=== PATIENT | male | born 1965 | race Caucasian/White ===

== ENCOUNTER 2016-09-23 18:38 | Emergency (ER) | payer MEDICAID ==
[2016-09-23] MEDS ORDERED: Albuterol 0.083% Inhal Sol (2.5 mg/3 mL) UD INH STA (19:06)
--- NOTE | 2016-09-23 19:23 | C.PDOC ---
History Of Present Illness 51 year old male presents to the ED via EMS with complaints of asthma exacerbation since last night. Patient states he used his Albuterol pump with no relief and called the ambulance and was given Solu-Medrol en route with improvement upon arrival. Patient reports he has only been on Albuterol recently. Time Seen by Provider: 09/23/16 18:53 Chief Complaint (Nursing): Respiratory Distress History Per: Patient History/Exam Limitations: no limitations Onset/Duration Of Symptoms: Days Current Symptoms Are (Timing): Still Present Initiating Event: Upper Respiratory Illness Current Respiratory Medications: Albuterol Severity: Mild Associated Symptoms: denies: Fever, Chills, Sweating, Chest Pain, Productive Cough Past Medical History Reviewed: Historical Data, Nursing Documentation, Vital Signs Vital Signs: Last Vital Signs Temp 98.7 F 09/23/16 20:56 Pulse 97 H 09/23/16 20:56 Resp 20 09/23/16 20:56 BP 122/77 09/23/16 20:56 Pulse Ox 98 09/23/16 21:20 - Medical History PMH: Asthma, HTN Family History: States: Unknown Family Hx - Social History Hx Tobacco Use: No Hx Alcohol Use: No Hx Substance Use: No Review Of Systems Except As Marked, All Systems Reviewed And Found Negative. Constitutional: Negative for: Fever, Chills Cardiovascular: Negative for: Chest Pain, Palpitations Respiratory: Positive for: Shortness of Breath. Negative for: Cough Neurological: Negative for: Weakness, Numbness Physical Exam - Physical Exam Appears: Non-toxic, No Acute Distress Skin: Normal Color, Warm, Dry Head: Atraumatic, Normacephalic Oral Mucosa: Moist Neck: Supple Chest: Symmetrical, No Deformity Cardiovascular: Rhythm Regular, No Murmur Respiratory: No Accessory Muscle Use, No Rales, No Rhonchi, Wheezing (+Mild diffuse expiratory wheezing) Gastrointestinal/Abdominal: Soft, No Tenderness, No Distention, No Guarding, No Rebound Extremity: Normal ROM Neurological/Psych: Oriented x3, Normal Speech, Normal Cognition ED Course And Treatment O2 Sat by Pulse Oximetry: 98 (Room air) Pulse Ox Interpretation: Normal Progress Note: Patient treated with nebs. Medical Decision Making Medical Decision Making: Post treatments markedly improved. Ambulated around the ED without diffuctly or SOB I discussed asthma tx with pt ie LAB Inhaled steroids alb and spacers. Pt understands no extra advair' alb when needed early clinic f/u Disposition Counseled Patient/Family Regarding: Need For Followup - Disposition Referrals: [facility] [Outside] Disposition: HOME/ ROUTINE Disposition Time: 21:08 Condition: GOOD Additional Instructions: Follow up in clinic, call to change apt Prescriptions: Fluticasone/Salmeterol 500/50 [Advair Diskus] 1 puff IH Q12 #1 puff Prednisone 1 tab PO DAILY #4 tablet Inhaler, Assist Devices [Space Chamber Plus] 1 each MC PRN #1 spacer Albuterol HFA [Ventolin HFA 90 mcg/actuation (8 g)] 1 puff IH QID PRN #1 puff PRN Reason: Cough Instructions: Asthma (ED) - Clinical Impression Clinical Impression: Asthma - Scribe Statement The provider has reviewed the documentation as recorded by the Scribe Kvng Alvarenga. Provider Attestation: All medical record entries made by the Scribe were at my direction and personally dictated by me. I have reviewed the chart and agree that the record accurately reflects my personal performance of the history, physical exam, medical decision making, and the department course for this patient. I have also personally directed, reviewed, and agree with the discharge instructions and disposition.
[2016-09-23 20:16] VITALS: RESP 20
[2016-09-23 20:57] VITALS: BP 122/77; PULSE 97; TEMP 98.7
[2016-09-23 21:15] VITALS: O2SAT 98
== END 2016-09-23 21:00 | disposition home or self-care (01) ==
LOC: C.ER 18:38
DX: J45.909 Unspecified asthma, uncomplicated (principal)